=== PATIENT | female | born 1985 | race Caucasian/White ===

== ENCOUNTER 2021-10-11 05:36 | Emergency (ER) | payer MEDICAID ==
[~2021-10-11] VITALS: Ht 154.9 cm; Wt 73.0 kg
[2021-10-11 05:41] VITALS: BP 109/74
[2021-10-11] MEDS ORDERED: PREDNISONE 20MG TABLET PO STA (05:53)
[2021-10-11] MEDS ORDERED: IPRATROPIUM BROMIDE (0.02%) 0.5MG/2.5ML NEB HHN STA (05:53)
[2021-10-11] MEDS ORDERED: ALBU05 NEB (05:58)
[2021-10-11] MEDS ORDERED: ALBU6.7H9 INH (05:58)
[2021-10-11] MEDS ORDERED: P50 MT (05:58)
[2021-10-11] MEDS ORDERED: ALBUTEROL (0.083%) 2.5MG/3ML NEB HHN SCH (06:00)
== END 2021-10-11 07:15 | disposition home or self-care (01) ==
LOC: ER 05:36
DX: J45.901 Unspecified asthma with (acute) exacerbation (principal); I51.9 Heart disease, unspecified; L40.9 Psoriasis, unspecified
CPT/HCPCS: 94640; 99283; J7512; Z7610

== ENCOUNTER 2021-12-02 22:21 | Emergency (ER) | payer MEDICAID ==
[~2021-12-02] VITALS: Ht 157.5 cm; Wt 76.0 kg
[~2021-12-02 22:21] MED LIST: ALBU05 NEB; ALBU6.7H9 INH; P50 MT
[2021-12-02] MEDS ORDERED: IPRATROPIUM BROMIDE (0.02%) 0.5MG/2.5ML NEB HHN STA (22:46)
[2021-12-02] MEDS ORDERED: PREDNISONE 20MG TABLET PO STA (22:46)
[2021-12-02] MEDS ORDERED: ALBUTEROL (0.083%) 2.5MG/3ML NEB HHN SCH (23:00)
[2021-12-03] MEDS ORDERED: ALBU6.7H9 INH (00:02)
[2021-12-03] MEDS ORDERED: ATROV INH (00:03)
[2021-12-03] MEDS ORDERED: P50 MT (00:03)
[2021-12-03] MEDS ORDERED: IBUP-2028 MT (00:04)
[2021-12-03 00:31] VITALS: BP 109/68
== END 2021-12-03 00:34 | disposition home or self-care (01) ==
LOC: ER 22:21
DX: J45.901 Unspecified asthma with (acute) exacerbation (principal); Z86.16 Personal history of COVID-19
CPT/HCPCS: 71045; 93005; 94640; 99283; J7512; Z7610

== ENCOUNTER 2022-05-13 10:47 | Emergency (ER) | payer MEDICAID, OTHER ==
[~2022-05-13] VITALS: Ht 154.9 cm; Wt 73.0 kg
[~2022-05-13 10:47] MED LIST changes: +ATROV INH; +IBUP-2028 MT
[2022-05-13 12:49] LABS: CHLORIDE 106 mEq/L (98-107)
[2022-05-13 12:52] LABS: HEMATOCRIT. 42.2 % (36.0-48.0); HEMOGLOBIN. 14.3 g/dL (12.0-16.0); MEAN CORPUSCULAR HEMOGLOBIN 31.8 pg (28.0-32.0); MEAN CORPUSCULAR VOLUME 93.7 fL (81.0-99.0); MEAN PLATELET VOLUME 8.9 fl (7.4-10.4); PLATELET 333 x1000/uL (130-400); RED CELL DISTRIBUTION WIDTH 14.2 % (11.6-14.6)
[2022-05-13 13:22] LABS: HCG SCREEN NEGATIVE
[2022-05-13 13:28] LABS: PLATELET ESTIMATE NORMAL
[2022-05-13 14:15] VITALS: BP 138/85
== END 2022-05-13 14:40 | disposition home or self-care (01) ==
LOC: ER 10:47
DX: R07.89 Other chest pain (principal); R11.2 Nausea with vomiting, unspecified; J45.909 Unspecified asthma, uncomplicated; Z79.899 Other long term (current) drug therapy
CPT/HCPCS: 36415; 71045; 80053; 83605; 83880; 84484; 84703; 85025; 93005; 99285

== ENCOUNTER 2023-11-20 07:58 | Emergency (ER) | payer SELFPAY ==
[~2023-11-20] VITALS: Ht 167.6 cm; Wt 91.0 kg
[~2023-11-20 07:58] MED LIST changes: +ALBU6.7H3 INH; -ALBU6.7H9 INH
[2023-11-20 08:00] VITALS: PULSE 116
[2023-11-20 08:01] VITALS: BP 141/79; RESP 16; TEMP 97.7; O2SAT 100
== END 2023-11-20 08:53 | disposition left against medical advice (07) ==
LOC: ER 08:10
DX: J45.909 Unspecified asthma, uncomplicated (principal); Z53.21 Procedure and treatment not carried out due to patient leaving prior to being seen by health care provider
CPT/HCPCS: 99281

== ENCOUNTER 2024-07-12 10:32 | Emergency (ER) | payer SELFPAY ==
[~2024-07-12] VITALS: Ht 165.1 cm; Wt 70.0 kg
[2024-07-12 10:36] VITALS: O2SAT 99
[2024-07-12 10:52] VITALS: RESP 26
[2024-07-12] MEDS: ALBUTEROL (0.083%) 2.5MG/3ML NEB HHN SCH (10:52)
[2024-07-12] MEDS: IPRATROPIUM BROMIDE (0.02%) 0.5MG/2.5ML NEB HHN STA (10:52)
[2024-07-12] MEDS: METHYLPREDNISOLONE SOD SUCC 125MG/2ML (ACT-O-VIAL) IV STA (10:55)
[2024-07-12] MEDS: MAGNESIUM 2 G PREMIX 50 ML IV ONE (10:55)
[2024-07-12] MEDS: SODIUM CHLORIDE 0.9% 1,000 ML IV ONE (10:56)
[2024-07-12 11:06] LABS: BASOPHILS % 0.6 % (0.0-2.0); HEMOGLOBIN. 14.1 g/dL (12.0-16.0); LYMPHOCYTES % 23.8 % (20.0-50.0); MEAN CORPUSCULAR HGB CONC 32.8 g/dL (31.0-37.0); MEAN CORPUSCULAR VOLUME 94.7 fL (81.0-99.0); MEAN PLATELET VOLUME 9.4 fl (7.4-10.4); MONOCYTES % 6.7 % (2.0-8.0); NEUTROPHILS % 55.9 % (40.0-76.0); PLATELET 307 x1000/uL (130-400); RED BLOOD CELL COUNT 4.54 mill/uL (4.2-5.4); RED CELL DISTRIBUTION WIDTH 14.5 % (11.6-14.6); WHITE BLOOD COUNT 8.3 x1000/uL (4.5-11.0)
[2024-07-12 11:08] LABS: HCG SCREEN NEGATIVE
[2024-07-12 11:17] LABS: CHLORIDE 109 mEq/L (98-107); POTASSIUM 3.7 mEq/L (3.5-5.1); SODIUM 141 mEq/L (136-145)
[2024-07-12 11:18] LABS: CARBON DIOXIDE 26 mEq/L (21-32)
[2024-07-12 11:19] LABS: CALCIUM 8.9 mg/dL (8.7-10.4)
[2024-07-12 11:22] VITALS: RESP 16
[2024-07-12 11:23] LABS: CREATININE 0.9 mg/dL (0.6-1.0); GLUCOSE 118 mg/dL (70-105); UREA NITROGEN BLOOD 10 mg/dL (9-23)
[2024-07-12 11:25] LABS: TROPONIN I HIGH SENSITIVITY 4 ng/L (3.0-34)
[2024-07-12 11:32] VITALS: RESP 16
[2024-07-12 11:40] VITALS: RESP 24
[2024-07-12 13:35] VITALS: BP 115/74; PULSE 83; RESP 12; TEMP 36.39180; O2SAT 98
== END 2024-07-12 14:57 | disposition left against medical advice (07) ==
LOC: ER 10:45 → EDBEDREQ 12:08 → EDBEDREQSVC 12:08 → EDBEDREQTM 12:08 → ER 14:57
DX: J45.901 Unspecified asthma with (acute) exacerbation (principal); R06.03 Acute respiratory distress; Z79.899 Other long term (current) drug therapy
CPT/HCPCS: 80048; 84703; 83880; 85025; 85379; 84484; 36415; 71045; 94640; 82803; 94660; 93005; 96365; 96375; 99291; J3475; J2919; Z7610 ×3; J7030

== ENCOUNTER 2024-12-16 04:58 | Emergency (ER) | payer SELFPAY ==
[~2024-12-16] VITALS: Ht 154.9 cm; Wt 91.0 kg
[2024-12-16 05:11] VITALS: BP 118/74; PULSE 88; RESP 20; TEMP 36.8; O2SAT 98
== END 2024-12-16 07:41 | disposition left against medical advice (07) ==
LOC: ER 04:58
DX: Z00.00 Encounter for general adult medical examination without abnormal findings (principal); Z53.21 Procedure and treatment not carried out due to patient leaving prior to being seen by health care provider